=== PATIENT | female | born 1985 | race Caucasian/White ===

== ENCOUNTER 2018-03-02 17:51 | Emergency (ER) | payer SELFPAY ==
--- NOTE | 2018-03-02 18:25 | NUR ---
PT COMES UP TO THE REGISTRATION WINDOW AND TELLS THEM THAT SHE IS GOING TO GO TO [facility] TO SEE IF IT IS FASTER THERE.
== END 2018-03-02 18:30 | disposition left against medical advice (07) ==
LOC: ER 17:51
DX: R05 Cough (principal); G43.909 Migraine, unspecified, not intractable, without status migrainosus; Z53.21 Procedure and treatment not carried out due to patient leaving prior to being seen by health care provider